=== PATIENT | female | born 1980 | race Caucasian/White ===

== ENCOUNTER → 2018-11-20 | Outpatient (CLI) | payer OTHER ==
--- NOTE | 2018-11-20 15:13 | US ---
EXAMINATION TYPE: US thyroid st tissue head/neck DATE OF EXAM: 11/20/2018 COMPARISON: NONE CLINICAL HISTORY: E04.9 Enlarged thyroid. Hypothyroid. No thyroid meds. Enlarged thyroid GLAND SIZE: Right Lobe: 5.7 x 2.4 x 2.4 cm Overall Parenchyma: homogenous Left Lobe: 6.7 x 2.7 x 2.4 cm Overall Parenchyma: homogeneous Isthmus Thickness: 0.3 cm NODULES RIGHT: # of nodules measured on right: 2 1. 0.8 X 0.6 x 0.6 cm hypoechoic nodule at the mid pole with well-defined margins. This nodule is tall as wide and shows intranodular vascularity. Prior size: No prior 2. 1.1 X 0.9 x 0.8 cm hypoechoic nodule at the lower pole with well-defined margins. This nodule is wider than tall and shows intranodular vascularity. Prior size: No prior LEFT: # of nodules measured on left: 3 1. 1.9 X 2.3 x 1.7 cm isoechoic nodule at the mid pole with well-defined margins. This nodule is w ider than tall and shows intranodular vascularity. Prior size: No prior 2. 1.1 X 1.0 x 1.0 cm isoechoic nodule at the mid/lower pole with well-defined margins. This nodule is tall as wide and shows intranodular vascularity. Prior size: No prior 3. 2.1 X 1.9 x 2.0 cm hypoechoic nodule at the lower pole with well-defined margins. This nodule is taller than wide and shows intranodular vascularity. Prior size: No prior ISTHMUS: # of nodules measured in the isthmus: 0 Bilateral neck scanned, no evidence of lymphadenopathy. IMPRESSION: Multiple bilateral thyroid nodules in an overall enlarged thyroid gland. Fine-needle aspiration is re commended for the 2 largest nodules on the left measuring up to 2.3 cm and 2.1 cm.
== END | disposition home or self-care (01) ==
LOC: RADUSWWP 14:29
PROVIDERS: ATTEND Family Medicine
DX: E04.2 Nontoxic multinodular goiter (principal)
CPT/HCPCS: 76536

== ENCOUNTER → 2024-08-23 | Outpatient (CLI) | payer BC ==
--- NOTE | 2024-08-23 11:47 | US ---
EXAMINATION TYPE: US thyroid st tissue head/neck DATE OF EXAM: 08/23/2024 COMPARISON: US 2019 CLINICAL INDICATION: Female, 44 years old with history of E04.2 Multiple Thyroid Nodules; Nodules TECHNIQUE: Grayscale and color Doppler imaging of the thyroid gland. FINDINGS: GLAND SIZE: Right Lobe: 7.3 x 2.7 x 2.0 cm, approximate measurement Overall Parenchyma: homogeneous Left Lobe: 7.2 x 2.9 x 2.3 cm., approximate measurement Overall Parenchyma: homogeneous Isthmus Thickness: 0.17 cm NODULES RIGHT: # of nodules measured on right: 2. Additional subcentimeter complex nodule seen, not ful ly measured. 1. 1.4 X 1.3 x 1.1 cm, mid mid, solid or almost completely solid, hypoechoic nodule, which is wider than tall, with smooth margins, without echogenic foci. TR 4. Follow-up ultrasound in one year is re commended. Prior size: 0.8 x 0.6 x 0.6 cm 2. 1.1 X 0.9 x 0.9 cm, lower mid, solid or almost completely solid, very hypoechoic nodule, which is as wide as it is tall with smooth margins, with echogenic foci. TR 5. Follow-up ultrasound in one year. Prior size: 1.1 x 0.9 x 0.8 cm LEFT: # of nodules measured on left: 4 1. 1.0 X 1.1 x 0.7 cm, upper medial, solid or almost completely solid, hypoechoic nodule, which is wider than tall, with smooth margins, without echogenic foci. TR 4. Follow-up ultrasound in one year is recommended. Prior size: Does not correlate 2. 3.2 X 3.0 x 2.6 cm, mid mid, solid or almost completely solid, hypoechoic nodule, which is wide r than tall, with lobulated or irregular margins, without echogenic foci. TR 5. Fine-needle aspiratio n is recommended. Prior size: 1.9 x 2.3 x 1.7 cm 3. 2.9 X 2.1 x 2.3 cm, lower lateral, solid or almost completely solid, hypoechoic nodule (with hyp erechoic border), which is taller than wide, with smooth margins, without echogenic foci. TR 5. Fine- needle aspiration is recommended. Prior size: 2.1 x 1.9 x 2.0 cm 4. 1.2 X 1.3 x 1.1 cm, lower mid, solid or almost completely solid, hypoechoic nodule, which is wid er than tall, with smooth margins, without echogenic foci. TR 4. Follow-up ultrasound in one year is recommended. Prior size: 1.1 x 1.0 x 1.0 cm ISTHMUS: # of nodules measured in the isthmus: 0 Bilateral neck scanned, no evidence of lymphadenopathy. IMPRESSION: Multinodular enlarged thyroid gland with increasing size of a few nodules and new nodule within the l eft thyroid lobe. Additional few nodules are stable from prior exam. Recommendations are described ab gama. [facility], , 08/23/2024 11:45 AM
== END | disposition home or self-care (01) ==
LOC: RADUSWWP 10:51
PROVIDERS: ATTEND Family Medicine
DX: E04.2 Nontoxic multinodular goiter (principal)
CPT/HCPCS: 76536